=== PATIENT | female | born 1980 | race Caucasian/White ===

== ENCOUNTER 2019-09-08 16:21 | Outpatient (CLI) | payer OTHER | END 2019-09-08 23:59 | disposition home or self-care (01) | LOC: RAD 16:21 | PROVIDERS: ATTEND Family Medicine | DX: R22.42 Localized swelling, mass and lump, left lower limb (principal) | CPT/HCPCS: 73610; 73630 ==

== ENCOUNTER 2019-12-10 15:23 | Outpatient (CLI) | payer BC, OTHER ==
[2019-12-10 16:07] LABS: BASOPHILS % (AUTO) 0.3 % (0-1); EOSINOPHILS # (AUTO) 0.2 X10'3 (0-0.9); EOSINOPHILS % (AUTO) 1.9 % (0-6); HEMATOCRIT 39.8 % (35.0-45.0); HEMOGLOBIN 13.4 g/dl (12.0-16.0); LYMPHOCYTES # (AUTO) 2.6 X10'3 (1.1-4.8); LYMPHOCYTES % (AUTO) 31.8 % (21-51); MEAN CORPUSCULAR HEMOGLOBIN 31.7 PG (27.0-31.0); MEAN CORPUSCULAR HGB CONC 33.7 g/dL (33.0-36.5); MEAN CORPUSCULAR VOLUME 94.1 FL (78-98); MEAN PLATELET VOLUME 9.1 FL (7.4-10.4); MONOCYTES # (AUTO) 0.8 X10'3 (0-0.9); MONOCYTES % (AUTO) 9.2 % (2-12); NEUTROPHILS # (AUTO) 4.7 X10'3 (1.8-7.7); NEUTROPHILS % (AUTO) 56.8 % (42-75); PLATELET COUNT 232 X10'3 (140-440); RED BLOOD COUNT 4.23 X10'6 (4.20-5.60); RED CELL DISTRIBUTION WIDTH 13.4 % (11.5-14.5); WHITE BLOOD COUNT 8.3 X10'3 (4.5-11.0)
[2019-12-10 16:19] LABS: HEMOGLOBIN A1C 5.3 % (4.5-6.2)
[2019-12-10 16:36] LABS: ALANINE AMINOTRANSFERASE 29 U/L (12-78); ALBUMIN 4.2 G/DL (3.4-5.0); ALBUMIN/GLOBULIN RATIO 1.3 (1.1-1.5); ALKALINE PHOSPHATASE 46 IU/L (46-116); ANION GAP 8 (8-16); ASPARTATE AMINO TRANSFERASE 15 U/L (10-37); BILIRUBIN,TOTAL 0.4 MG/DL (0.1-1.0); BLOOD UREA NITROGEN 12 MG/DL (7-18); BUN/CREATININE RATIO 11.7 (6.6-38.0); CALCIUM 9.1 MG/DL (8.5-10.1); CHLORIDE 102 MMOL/L (99-107); CHOL/HDL RATIO 3.1 (0.00-4.99); CHOLESTEROL 143 MG/DL (0-200); CREATININE 1.03 MG/DL (0.40-0.90); GLUCOSE 88 MG/DL (70-104); HDL CHOLESTEROL 46 MG/DL (35-60); LDL CHOLESTEROL 77 MG/DL (50-100); POTASSIUM 3.7 MMOL/L (3.5-5.1); SODIUM 137 MMOL/L (135-145); TOTAL CARBON DIOXIDE 27.2 MMOL/L (24-32); TOTAL PROTEIN 7.4 G/DL (6.4-8.2); TRIGLYCERIDES 198 MG/DL (20-135); eGFR 59 ML/MIN
== END 2019-12-10 23:59 | disposition home or self-care (01) ==
LOC: LAB 15:23
PROVIDERS: ATTEND Nurse Practitioner Family
DX: Z13.29 Encounter for screening for other suspected endocrine disorder (principal); I10 Essential (primary) hypertension; E78.49 Other hyperlipidemia; Z13.0 Encounter for screening for diseases of the blood and blood-forming organs and certain disorders involving the immune mechanism
CPT/HCPCS: 36415; 80053; 80061; 83036; 84439; 84443; 85025

== ENCOUNTER 2019-12-24 14:30 | Outpatient (CLI) | payer BC, OTHER | END 2019-12-24 23:59 | disposition home or self-care (01) | LOC: RAD 14:30 | PROVIDERS: ATTEND Nurse Practitioner Family | DX: R94.4 Abnormal results of kidney function studies (principal); R79.89 Other specified abnormal findings of blood chemistry; Q61.5 Medullary cystic kidney | CPT/HCPCS: 76775 ==

== ENCOUNTER 2020-01-05 | Outpatient (CLI) | payer SELFPAY | END 2020-01-05 23:59 | disposition home or self-care (01) | DX: Z13.6 Encounter for screening for cardiovascular disorders (principal) ==

== ENCOUNTER 2020-07-22 10:43 | Outpatient (CLI) | payer OTHER ==
[2020-07-22 11:27] LABS: CLARITY,URINE CLEAR (Clear); COLOR,URINE STRAW (Yellow); GLUCOSE, URINE NEGATIVE (Neg); KETONES,URINE NEGATIVE (Neg); LEUKOCYTE ESTERASE ,URINE NEGATIVE (Neg); NITRITES, URINE NEGATIVE (Neg); OCCULT BLOOD,URINE NEGATIVE (Neg); PROTEIN,URINE NEGATIVE (Neg); UROBILINOGEN,URINE 0.2 E.U/dL (0.2-1.0)
[2020-07-22 11:30] LABS: UA COLLECTION TYPE CLN CATCH MIDSTREAM
[2020-07-22 11:55] LABS: ALANINE AMINOTRANSFERASE 37 U/L (12-78); ALBUMIN 3.8 G/DL (3.4-5.0); ALBUMIN/GLOBULIN RATIO 1.2 (1.1-1.5); ALKALINE PHOSPHATASE 50 IU/L (46-116); ANION GAP 11 (8-16); ASPARTATE AMINO TRANSFERASE 17 U/L (10-37); BILIRUBIN,TOTAL 0.4 MG/DL (0.1-1.0); BLOOD UREA NITROGEN 15 MG/DL (7-18); CALCIUM 8.6 MG/DL (8.5-10.1); CHLORIDE 102 MMOL/L (99-107); CHOL/HDL RATIO 3.3 (0.00-4.99); CHOLESTEROL 157 MG/DL (0-200); CREATININE 1.07 MG/DL (0.40-0.90); GLUCOSE 141 MG/DL (70-104); HDL CHOLESTEROL 47 MG/DL (35-60); LDL CHOLESTEROL 86 MG/DL (50-100); POTASSIUM 3.6 MMOL/L (3.5-5.1); SODIUM 141 MMOL/L (135-145); TOTAL CARBON DIOXIDE 28.1 MMOL/L (24-32); TOTAL PROTEIN 6.9 G/DL (6.4-8.2); TRIGLYCERIDES 220 MG/DL (20-135); eGFR 56 ML/MIN
[2020-07-22 11:57] LABS: BASOPHILS % (AUTO) 0.1 % (0-1); EOSINOPHILS # (AUTO) 0.1 X10'3 (0-0.9); EOSINOPHILS % (AUTO) 1.4 % (0-6); HEMATOCRIT 40.4 % (35.0-45.0); HEMOGLOBIN 13.5 g/dl (12.0-16.0); LYMPHOCYTES # (AUTO) 1.8 X10'3 (1.1-4.8); MEAN CORPUSCULAR HEMOGLOBIN 31.7 PG (27.0-31.0); MEAN CORPUSCULAR HGB CONC 33.5 g/dL (33.0-36.5); MEAN CORPUSCULAR VOLUME 94.5 FL (78-98); MONOCYTES # (AUTO) 0.5 X10'3 (0-0.9); MONOCYTES % (AUTO) 5.7 % (2-12); NEUTROPHILS # (AUTO) 6.1 X10'3 (1.8-7.7); NEUTROPHILS % (AUTO) 71.8 % (42-75); PLATELET COUNT 211 X10'3 (140-440); RED BLOOD COUNT 4.27 X10'6 (4.20-5.60); RED CELL DISTRIBUTION WIDTH 13.4 % (11.5-14.5); WHITE BLOOD COUNT 8.4 X10'3 (4.5-11.0)
== END 2020-07-22 23:59 | disposition home or self-care (01) ==
LOC: LAB 10:43
PROVIDERS: ATTEND Nurse Practitioner Family
DX: Z00.01 Encounter for general adult medical examination with abnormal findings (principal); Z12.31 Encounter for screening mammogram for malignant neoplasm of breast; I10 Essential (primary) hypertension; E78.5 Hyperlipidemia, unspecified; N39.9 Disorder of urinary system, unspecified; Z13.29 Encounter for screening for other suspected endocrine disorder; Z68.34 Body mass index [BMI] 34.0-34.9, adult
CPT/HCPCS: 36415; 80053; 80061; 81003; 84439; 84443; 85025

== ENCOUNTER 2020-11-01 15:58 | Outpatient (CLI) | payer BC, OTHER ==
[2020-11-01 16:55] LABS: BASOPHILS % (AUTO) 0.2 % (0-1); EOSINOPHILS # (AUTO) 0.1 X10'3 (0-0.9); EOSINOPHILS % (AUTO) 1.6 % (0-6); HEMATOCRIT 39.2 % (35.0-45.0); HEMOGLOBIN 13.4 g/dl (12.0-16.0); LYMPHOCYTES # (AUTO) 2.5 X10'3 (1.1-4.8); MEAN CORPUSCULAR HEMOGLOBIN 31.9 PG (27.0-31.0); MEAN CORPUSCULAR HGB CONC 34.1 g/dL (33.0-36.5); MEAN CORPUSCULAR VOLUME 93.8 FL (78-98); MEAN PLATELET VOLUME 9.2 FL (7.4-10.4); MONOCYTES # (AUTO) 0.9 X10'3 (0-0.9); NEUTROPHILS # (AUTO) 5.2 X10'3 (1.8-7.7); NEUTROPHILS % (AUTO) 59.2 % (42-75); PLATELET COUNT 217 X10'3 (140-440); RED BLOOD COUNT 4.18 X10'6 (4.20-5.60); RED CELL DISTRIBUTION WIDTH 13.4 % (11.5-14.5); WHITE BLOOD COUNT 8.8 X10'3 (4.5-11.0)
[2020-11-01 17:11] LABS: ALANINE AMINOTRANSFERASE 43 U/L (12-78); ALBUMIN 3.9 G/DL (3.4-5.0); ALBUMIN/GLOBULIN RATIO 1.3 (1.1-1.5); ALKALINE PHOSPHATASE 54 IU/L (46-116); ANION GAP 9 (8-16); ASPARTATE AMINO TRANSFERASE 21 U/L (10-37); BILIRUBIN,TOTAL 0.4 MG/DL (0.1-1.0); BLOOD UREA NITROGEN 16 MG/DL (7-18); BUN/CREATININE RATIO 17.4 (6.6-38.0); CALCIUM 8.8 MG/DL (8.5-10.1); CHLORIDE 103 MMOL/L (99-107); CREATININE 0.92 MG/DL (0.40-0.90); GLUCOSE 96 MG/DL (70-104); MAGNESIUM 1.9 MG/DL (1.5-2.4); PHOSPHORUS 3.9 MG/DL (2.3-4.5); POTASSIUM 3.4 MMOL/L (3.5-5.1); SODIUM 142 MMOL/L (135-145); TOTAL CARBON DIOXIDE 30.1 MMOL/L (24-32); eGFR 67 ML/MIN
[2020-11-01 17:13] LABS: TOTAL PROTEIN,URINE RANDOM < 6.0 MG/DL
[2020-11-01 17:14] LABS: CLARITY,URINE CLEAR (Clear); COLOR,URINE STRAW (Yellow); GLUCOSE, URINE NEGATIVE (Neg); KETONES,URINE NEGATIVE (Neg); LEUKOCYTE ESTERASE ,URINE NEGATIVE (Neg); NITRITES, URINE NEGATIVE (Neg); OCCULT BLOOD,URINE NEGATIVE (Neg); PH,URINE 6.5 (4.8-8.0); PROTEIN,URINE NEGATIVE (Neg); UROBILINOGEN,URINE 0.2 E.U/dL (0.2-1.0)
[2020-11-01 17:21] LABS: UA COLLECTION TYPE CLN CATCH MIDSTREAM
== END 2020-11-01 23:59 | disposition home or self-care (01) ==
LOC: LAB 15:58
PROVIDERS: ATTEND Internal Medicine Critical Care Medicine
DX: N39.0 Urinary tract infection, site not specified (principal); D63.1 Anemia in chronic kidney disease; N18.9 Chronic kidney disease, unspecified; E83.30 Disorder of phosphorus metabolism, unspecified; R80.9 Proteinuria, unspecified; E83.42 Hypomagnesemia; E83.52 Hypercalcemia; R82.90 Unspecified abnormal findings in urine; R77.0 Abnormality of albumin
CPT/HCPCS: 36415; 80053; 81003; 82043; 82306; 82570; 83735; 83970; 84100; 84156; 85025

== ENCOUNTER 2022-04-17 15:33 | Outpatient (CLI) | payer BC, OTHER ==
[2022-04-17 16:41] LABS: BASOPHILS % (AUTO) 0.4 % (0-1); EOSINOPHILS # (AUTO) 0.5 X10'3 (0-0.9); EOSINOPHILS % (AUTO) 5.9 % (0-6); HEMATOCRIT 39.1 % (35.0-45.0); HEMOGLOBIN 13.3 g/dl (12.0-16.0); LYMPHOCYTES # (AUTO) 2.8 X10'3 (1.1-4.8); LYMPHOCYTES % (AUTO) 31.1 % (21-51); MEAN CORPUSCULAR HGB CONC 34.1 g/dL (33.0-36.5); MEAN CORPUSCULAR VOLUME 93.8 FL (78-98); MEAN PLATELET VOLUME 8.7 FL (7.4-10.4); MONOCYTES # (AUTO) 0.7 X10'3 (0-0.9); MONOCYTES % (AUTO) 7.8 % (2-12); NEUTROPHILS % (AUTO) 54.8 % (42-75); PLATELET COUNT 212 X10'3 (140-440); RED BLOOD COUNT 4.17 X10'6 (4.20-5.60); RED CELL DISTRIBUTION WIDTH 13.5 % (11.5-14.5); WHITE BLOOD COUNT 9.1 X10'3 (4.5-11.0)
[2022-04-17 17:09] LABS: ALANINE AMINOTRANSFERASE 53 U/L (12-78); ALBUMIN/GLOBULIN RATIO 1.3 (1.1-1.5); ALKALINE PHOSPHATASE 61 IU/L (46-116); ANION GAP 8 (8-16); ASPARTATE AMINO TRANSFERASE 36 U/L (10-37); BILIRUBIN,TOTAL 0.3 MG/DL (0.1-1.0); BLOOD UREA NITROGEN 12 MG/DL (7-18); BUN/CREATININE RATIO 11.2 (6.6-38.0); CALCIUM 8.2 MG/DL (8.5-10.1); CHLORIDE 103 MMOL/L (99-107); CHOL/HDL RATIO 4.3 (0.00-4.99); CHOLESTEROL 193 MG/DL (0-200); CREATININE 1.07 MG/DL (0.40-0.90); GLUCOSE 97 MG/DL (70-104); HDL CHOLESTEROL 45 MG/DL (35-60); LDL CHOLESTEROL 109 MG/DL (50-100); PHOSPHORUS 3.6 MG/DL (2.3-4.5); POTASSIUM 3.8 MMOL/L (3.5-5.1); SODIUM 137 MMOL/L (135-145); TOTAL CARBON DIOXIDE 26.2 MMOL/L (24-32); TOTAL PROTEIN 7.1 G/DL (6.4-8.2); TRIGLYCERIDES 309 MG/DL (20-135); eGFR 56 ML/MIN
== END 2022-04-17 23:59 | disposition home or self-care (01) ==
LOC: LAB 15:33
PROVIDERS: ATTEND Family Medicine
DX: Z13.29 Encounter for screening for other suspected endocrine disorder (principal); R53.83 Other fatigue; Q24.8 Other specified congenital malformations of heart; K21.9 Gastro-esophageal reflux disease without esophagitis; I10 Essential (primary) hypertension; Q61.5 Medullary cystic kidney; M25.561 Pain in right knee; Z91.09 Other allergy status, other than to drugs and biological substances
CPT/HCPCS: 36415; 80053; 80061; 82043; 82570; 82607; 82746; 84100; 84443; 85025; 85651; 86140

== ENCOUNTER 2022-07-06 10:56 | Outpatient (CLI) | payer OTHER ==
[2022-07-06 12:33] LABS: CLARITY,URINE CLEAR (Clear); COLOR,URINE YELLOW (Yellow); GLUCOSE, URINE NEGATIVE (Neg); KETONES,URINE NEGATIVE (Neg); LEUKOCYTE ESTERASE ,URINE NEGATIVE (Neg); NITRITES, URINE NEGATIVE (Neg); OCCULT BLOOD,URINE NEGATIVE (Neg); PROTEIN,URINE NEGATIVE (Neg); UROBILINOGEN,URINE 0.2 E.U/dL (0.2-1.0)
[2022-07-06 12:35] LABS: UA COLLECTION TYPE CLN CATCH MIDSTREAM
[2022-07-06 12:53] LABS: BASOPHILS % (AUTO) 0.3 % (0-1); EOSINOPHILS # (AUTO) 0.1 X10'3 (0-0.9); EOSINOPHILS % (AUTO) 1.5 % (0-6); HEMATOCRIT 42.1 % (35.0-45.0); HEMOGLOBIN 14.4 g/dl (12.0-16.0); LYMPHOCYTES # (AUTO) 2.8 X10'3 (1.1-4.8); LYMPHOCYTES % (AUTO) 30.7 % (21-51); MEAN CORPUSCULAR HEMOGLOBIN 31.7 PG (27.0-31.0); MEAN CORPUSCULAR HGB CONC 34.1 g/dL (33.0-36.5); MEAN CORPUSCULAR VOLUME 93.1 FL (78-98); MEAN PLATELET VOLUME 8.9 FL (7.4-10.4); MONOCYTES # (AUTO) 0.7 X10'3 (0-0.9); MONOCYTES % (AUTO) 8.2 % (2-12); NEUTROPHILS # (AUTO) 5.4 X10'3 (1.8-7.7); NEUTROPHILS % (AUTO) 59.3 % (42-75); PLATELET COUNT 254 X10'3 (140-440); RED BLOOD COUNT 4.52 X10'6 (4.20-5.60); RED CELL DISTRIBUTION WIDTH 13.1 % (11.5-14.5); WHITE BLOOD COUNT 9.2 X10'3 (4.5-11.0)
[2022-07-06 12:58] LABS: TOTAL PROTEIN,URINE RANDOM < 6.0 MG/DL
[2022-07-06 13:21] LABS: % IRON SATURATION 27 % (11-46); IRON 98 UG/DL (49-151); TOTAL IRON BINDING CAPACITY 365 UG/DL (259-388)
[2022-07-06 13:51] LABS: ALBUMIN 4.3 G/DL (3.4-5.0); ANION GAP 9 (8-16); BLOOD UREA NITROGEN 13 MG/DL (7-18); BUN/CREATININE RATIO 12.9 (10.0-20.0); CALCIUM 9.2 MG/DL (8.5-10.1); CHLORIDE 100 MMOL/L (99-107); CREATININE 1.01 MG/DL (0.40-0.90); FERRITIN 135 NG/ML (8-252); GLUCOSE 97 MG/DL (70-104); MAGNESIUM 2.2 MG/DL (1.5-2.4); PHOSPHORUS 4.4 MG/DL (2.3-4.5); SODIUM 137 MMOL/L (135-145); TOTAL CARBON DIOXIDE 28.3 MMOL/L (24-32); eGFR 60 ML/MIN
== END 2022-07-06 23:59 | disposition home or self-care (01) ==
LOC: LAB 10:56
PROVIDERS: ATTEND Internal Medicine Critical Care Medicine
DX: N18.1 Chronic kidney disease, stage 1 (principal); D63.1 Anemia in chronic kidney disease; R94.4 Abnormal results of kidney function studies; E83.40 Disorders of magnesium metabolism, unspecified; E83.30 Disorder of phosphorus metabolism, unspecified; N39.0 Urinary tract infection, site not specified; D50.8 Other iron deficiency anemias; E83.52 Hypercalcemia; R80.9 Proteinuria, unspecified
CPT/HCPCS: 36415; 80069; 81003; 82306; 82570; 82728; 83540; 83550; 83735; 83970; 84156; 85025; 87088

== ENCOUNTER 2022-11-13 09:11 | Outpatient (CLI) | payer OTHER ==
[2022-11-13 10:13] LABS: CHOL/HDL RATIO 4.4 (0.00-4.99); CHOLESTEROL 181 MG/DL (0-200); GLUCOSE 119 MG/DL (70-104); HDL CHOLESTEROL 41 MG/DL (35-60); HEMOGLOBIN A1C 5.7 % (4.5-6.2); LDL CHOLESTEROL 101 MG/DL (50-100); TRIGLYCERIDES 247 MG/DL (20-135)
== END 2022-11-13 23:59 | disposition home or self-care (01) ==
LOC: LAB 09:11
PROVIDERS: ATTEND Family Medicine
DX: Z13.1 Encounter for screening for diabetes mellitus (principal); E78.5 Hyperlipidemia, unspecified
CPT/HCPCS: 36415; 80061; 82947; 82950; 83036

== ENCOUNTER 2023-02-08 12:53 | Outpatient (CLI) | payer OTHER | END 2023-02-08 23:59 | disposition home or self-care (01) | LOC: RAD 12:53 | PROVIDERS: ATTEND Family Medicine | DX: M25.561 Pain in right knee (principal); Z68.36 Body mass index [BMI] 36.0-36.9, adult | CPT/HCPCS: 73565 ==

== ENCOUNTER 2023-02-15 15:59 | Outpatient (CLI) | payer OTHER | END 2023-02-15 23:59 | disposition home or self-care (01) | LOC: RAD 15:59 | PROVIDERS: ATTEND Family Medicine | DX: N21.0 Calculus in bladder (principal); N32.89 Other specified disorders of bladder; N23 Unspecified renal colic | CPT/HCPCS: 76770 ==

== ENCOUNTER 2023-02-26 10:33 | Emergency (ER) | payer OTHER ==
[~2023-02-26] VITALS: Ht 172.7 cm; Wt 100.0 kg
[2023-02-26 11:17] LABS: BILIRUBIN,URINE NEGATIVE (Neg); CLARITY,URINE CLEAR (Clear); COLOR,URINE STRAW (Yellow); GLUCOSE, URINE NEGATIVE (Neg); KETONES,URINE NEGATIVE (Neg); LEUKOCYTE ESTERASE ,URINE NEGATIVE (Neg); NITRITES, URINE NEGATIVE (Neg); OCCULT BLOOD,URINE NEGATIVE (Neg); PROTEIN,URINE NEGATIVE (Neg); UROBILINOGEN,URINE 0.2 E.U/dL (0.2-1.0)
[2023-02-26 11:23] LABS: UA COLLECTION TYPE CLN CATCH MIDSTREAM
[2023-02-26 11:35] LABS: BASOPHILS % (AUTO) 0.3 % (0-1); EOSINOPHILS # (AUTO) 0.1 X10'3 (0-0.9); EOSINOPHILS % (AUTO) 1.4 % (0-6); HEMATOCRIT 40.2 % (35.0-45.0); HEMOGLOBIN 13.6 g/dl (12.0-16.0); LYMPHOCYTES # (AUTO) 2.7 X10'3 (1.1-4.8); LYMPHOCYTES % (AUTO) 28.3 % (21-51); MEAN CORPUSCULAR VOLUME 94.2 FL (78-98); MEAN PLATELET VOLUME 8.8 FL (7.4-10.4); MONOCYTES # (AUTO) 0.7 X10'3 (0-0.9); MONOCYTES % (AUTO) 6.8 % (2-12); NEUTROPHILS # (AUTO) 6.1 X10'3 (1.8-7.7); NEUTROPHILS % (AUTO) 63.2 % (42-75); PLATELET COUNT 265 X10'3 (140-440); RED BLOOD COUNT 4.27 X10'6 (4.20-5.60); RED CELL DISTRIBUTION WIDTH 12.9 % (11.5-14.5); WHITE BLOOD COUNT 9.7 X10'3 (4.5-11.0)
[2023-02-26 11:50] LABS: ALANINE AMINOTRANSFERASE 28 U/L (12-78); ALBUMIN 4.2 G/DL (3.4-5.0); ALBUMIN/GLOBULIN RATIO 1.3 (1.1-1.5); ALKALINE PHOSPHATASE 52 IU/L (46-116); AMYLASE 22 U/L (25-115); ANION GAP 6 (8-16); ASPARTATE AMINO TRANSFERASE 18 U/L (10-37); BILIRUBIN,TOTAL 0.5 MG/DL (0.1-1.0); BLOOD UREA NITROGEN 17 MG/DL (7-18); BUN/CREATININE RATIO 16.3 (10.0-20.0); CALCIUM 8.9 MG/DL (8.5-10.1); CHLORIDE 100 MMOL/L (99-107); CREATININE 1.04 MG/DL (0.40-0.90); GLUCOSE 127 MG/DL (70-104); LIPASE 50 U/L (16-77); POTASSIUM 3.6 MMOL/L (3.5-5.1); SODIUM 134 MMOL/L (135-145); TOTAL CARBON DIOXIDE 27.9 MMOL/L (24-32); TOTAL PROTEIN 7.4 G/DL (6.4-8.2); eCRCL 70 ML/MIN; eGFR 58 ML/MIN
[2023-02-26 16:18] VITALS: TEMP 97.6
[2023-02-26] MEDS ORDERED: morphine 4 MG/ML inj SYRINge IV ONE ×2 (16:30→18:15)
[2023-02-26] MEDS ORDERED: ondansetron/PF 4mg/2ml inj IV ONE (16:30)
[2023-02-26] MEDS ORDERED: normal saline 1000ML IV soln IVB ONE (16:30)
[2023-02-26 16:55] LABS: URINE HCG NEGATIVE (NEG)
--- NOTE | 2023-02-26 18:10 | NUR ---
PT REPORTS NO RELEIF FROM [place]. NOTIFIED DR. COTTO. ORDERS RECIEVED. WILL IMPLEMENT ORDERS.
[2023-02-26] MEDS ORDERED: mag hydrox/Alum hydrox/simeth 30ml oral suspension PO ONE (18:15)
[2023-02-26] MEDS ORDERED: LIDOcaine Viscous 15ml cup MM PRN (18:15)
[2023-02-26] MEDS ORDERED: ONDA4TAB12 PO (19:08)
[2023-02-26] MEDS ORDERED: HYDR-3965 PO (19:08)
[2023-02-26 19:50] VITALS: BP 127/82; PULSE 82; RESP 19; O2SAT 98
== END 2023-02-26 21:02 | disposition home or self-care (01) ==
LOC: ER 10:33
DX: N20.0 Calculus of kidney (principal); R11.0 Nausea; E78.00 Pure hypercholesterolemia, unspecified; I10 Essential (primary) hypertension; Z88.8 Allergy status to other drugs, medicaments and biological substances
CPT/HCPCS: 36415; 74176; 80053; 81003; 81025; 82150; 83690; 85025; 96361; 96374; 96375; 99285; J2270; J2405; J7030

== ENCOUNTER 2023-03-27 11:03 | Outpatient (CLI) | payer OTHER ==
[~2023-03-27 11:03] MED LIST: HYDR-3965 PO; ONDA4TAB12 PO
[2023-03-27 11:38] LABS: BASOPHILS % (AUTO) 0.3 % (0-1); EOSINOPHILS # (AUTO) 0.2 X10'3 (0-0.9); EOSINOPHILS % (AUTO) 2.5 % (0-6); HEMATOCRIT 38.6 % (35.0-45.0); HEMOGLOBIN 13.2 g/dl (12.0-16.0); LYMPHOCYTES # (AUTO) 2.5 X10'3 (1.1-4.8); LYMPHOCYTES % (AUTO) 34.2 % (21-51); MEAN CORPUSCULAR HEMOGLOBIN 31.8 PG (27.0-31.0); MEAN CORPUSCULAR HGB CONC 34.1 g/dL (33.0-36.5); MEAN CORPUSCULAR VOLUME 93.2 FL (78-98); MEAN PLATELET VOLUME 8.9 FL (7.4-10.4); MONOCYTES # (AUTO) 0.6 X10'3 (0-0.9); MONOCYTES % (AUTO) 8.5 % (2-12); NEUTROPHILS % (AUTO) 54.5 % (42-75); PLATELET COUNT 232 X10'3 (140-440); RED BLOOD COUNT 4.14 X10'6 (4.20-5.60); RED CELL DISTRIBUTION WIDTH 12.9 % (11.5-14.5); WHITE BLOOD COUNT 7.4 X10'3 (4.5-11.0)
[2023-03-27 11:46] LABS: ANION GAP 8 (8-16); BLOOD UREA NITROGEN 11 MG/DL (7-18); BUN/CREATININE RATIO 11.2 (10.0-20.0); CALCIUM 8.7 MG/DL (8.5-10.1); CHLORIDE 105 MMOL/L (99-107); CREATININE 0.98 MG/DL (0.40-0.90); GLUCOSE 93 MG/DL (70-104); POTASSIUM 3.7 MMOL/L (3.5-5.1); SODIUM 138 MMOL/L (135-145); TOTAL CARBON DIOXIDE 25.4 MMOL/L (24-32); eGFR 62 ML/MIN
== END 2023-03-27 23:59 | disposition home or self-care (01) ==
LOC: LAB 11:03
PROVIDERS: ATTEND Urology
DX: Z01.812 Encounter for preprocedural laboratory examination (principal); N20.0 Calculus of kidney
CPT/HCPCS: 36415; 80048; 85025

== ENCOUNTER 2023-06-18 15:49 | Outpatient (CLI) | payer OTHER ==
[2023-06-18 16:36] LABS: BASOPHILS % (AUTO) 0.2 % (0-1); EOSINOPHILS # (AUTO) 0.2 X10'3 (0-0.9); EOSINOPHILS % (AUTO) 1.6 % (0-6); HEMATOCRIT 40.6 % (35.0-45.0); HEMOGLOBIN 13.7 g/dl (12.0-16.0); LYMPHOCYTES # (AUTO) 3.1 X10'3 (1.1-4.8); LYMPHOCYTES % (AUTO) 30.4 % (21-51); MEAN CORPUSCULAR HEMOGLOBIN 31.4 PG (27.0-31.0); MEAN CORPUSCULAR HGB CONC 33.7 g/dL (33.0-36.5); MEAN CORPUSCULAR VOLUME 93.1 FL (78-98); MEAN PLATELET VOLUME 8.9 FL (7.4-10.4); MONOCYTES % (AUTO) 9.4 % (2-12); NEUTROPHILS # (AUTO) 5.9 X10'3 (1.8-7.7); NEUTROPHILS % (AUTO) 58.4 % (42-75); PLATELET COUNT 251 X10'3 (140-440); RED BLOOD COUNT 4.36 X10'6 (4.20-5.60); RED CELL DISTRIBUTION WIDTH 13.3 % (11.5-14.5); WHITE BLOOD COUNT 10.1 X10'3 (4.5-11.0)
[2023-06-18 16:50] LABS: HEMOGLOBIN A1C 5.4 % (4.5-6.2)
[2023-06-18 17:47] LABS: ALBUMIN 4.1 G/DL (3.4-5.0); ALBUMIN/GLOBULIN RATIO 1.3 (1.1-1.5); ANION GAP 12 (8-16); ASPARTATE AMINO TRANSFERASE 17 U/L (10-37); BILIRUBIN,TOTAL 0.3 MG/DL (0.1-1.0); BLOOD UREA NITROGEN 19 MG/DL (7-18); BUN/CREATININE RATIO 19.2 (10.0-20.0); CALCIUM 8.5 MG/DL (8.5-10.1); CHLORIDE 105 MMOL/L (99-107); CHOL/HDL RATIO 4.1 (0.00-4.99); CHOLESTEROL 194 MG/DL (0-200); CREATININE 0.99 MG/DL (0.40-0.90); FREE T4 (FREE THYROXINE) 0.72 NG/DL (0.73-1.40); GLUCOSE 96 MG/DL (70-104); HDL CHOLESTEROL 47 MG/DL (35-60); POTASSIUM 3.9 MMOL/L (3.5-5.1); SODIUM 141 MMOL/L (135-145); THYROID STIMULATING HORMONE 1.39 ulU/ml (0.34-4.50); TOTAL CARBON DIOXIDE 23.8 MMOL/L (24-32); TOTAL PROTEIN 7.3 G/DL (6.4-8.2); TRIGLYCERIDES 184 MG/DL (20-135); eGFR 61 ML/MIN
[2023-06-18 17:49] LABS: ALANINE AMINOTRANSFERASE 29 U/L (12-78); ALKALINE PHOSPHATASE 49 IU/L (46-116); LDL CHOLESTEROL 107 MG/DL (50-100)
[2023-06-19 08:23] LABS: BILIRUBIN,URINE NEGATIVE (Neg); CLARITY,URINE CLEAR (Clear); COLOR,URINE YELLOW (Yellow); GLUCOSE, URINE NEGATIVE (Neg); KETONES,URINE NEGATIVE (Neg); LEUKOCYTE ESTERASE ,URINE NEGATIVE (Neg); NITRITES, URINE NEGATIVE (Neg); OCCULT BLOOD,URINE NEGATIVE (Neg); PH,URINE 5.5 (4.8-8.0); PROTEIN,URINE NEGATIVE (Neg); UROBILINOGEN,URINE 0.2 E.U/dL (0.2-1.0)
[2023-06-19 08:29] LABS: UA COLLECTION TYPE CLN CATCH MIDSTREAM
== END 2023-06-18 23:59 | disposition home or self-care (01) ==
LOC: LAB 15:49
PROVIDERS: ATTEND Family Medicine
DX: Z00.00 Encounter for general adult medical examination without abnormal findings (principal)
CPT/HCPCS: 36415; 80053; 80061; 81003; 83036; 84439; 84443; 85025

== ENCOUNTER 2023-10-25 16:01 | Outpatient (CLI) | payer OTHER ==
[~2023-10-25 16:01] MED LIST changes: +ONDA-243 PO; -ONDA4TAB12 PO
[2023-11-29] MEDS ORDERED: LOSA1TAB41 PO (08:58)
[2023-11-29] MEDS ORDERED: ROSU10TA72 PO (08:58)
[2023-11-29] MEDS ORDERED: FENO50CA4 PO (08:58)
[2023-11-29] MEDS ORDERED: MONT-40 PO (08:58)
[2023-11-29] MEDS ORDERED: MULT-1085 PO (08:58)
[2023-11-29] MEDS ORDERED: DESV25TA2 PO (08:58)
[2023-11-29] MEDS ORDERED: TUMERIC (08:58)
[2023-11-29] MEDS ORDERED: ALBUTEROL INH (09:00)
[2023-11-29] MEDS ORDERED: [UNRECOGNIZED DRUG - OTHER] (09:01)
== END 2023-10-25 23:59 | disposition home or self-care (01) ==
LOC: LAB 16:01
PROVIDERS: ATTEND Student in an Organized Health Care Education/Training Program
DX: R21 Rash and other nonspecific skin eruption (principal); L30.9 Dermatitis, unspecified
CPT/HCPCS: 36415

== ENCOUNTER 2023-12-04 15:22 | Outpatient (CLI) | payer OTHER ==
[~2023-12-04 15:22] MED LIST changes: +ALBUTEROL INH; +DESV25TA2 PO; +FENO50CA4 PO; -HYDR-3965 PO; +LOSA1TAB41 PO; +MONT-40 PO; +MULT-1085 PO; -ONDA-243 PO; +ROSU10TA72 PO; +TUMERIC; +[UNRECOGNIZED DRUG - OTHER]
[2023-12-04 16:17] LABS: BASOPHILS # (AUTO) 0.1 X10'3 (0-0.2); BASOPHILS % (AUTO) 0.7 % (0-1); EOSINOPHILS # (AUTO) 1.5 X10'3 (0-0.9); HEMATOCRIT 40.8 % (35.0-45.0); HEMOGLOBIN 13.3 g/dl (12.0-16.0); LYMPHOCYTES # (AUTO) 3.6 X10'3 (1.1-4.8); LYMPHOCYTES % (AUTO) 27.3 % (21-51); MEAN CORPUSCULAR HEMOGLOBIN 30.8 PG (27.0-31.0); MEAN CORPUSCULAR HGB CONC 32.6 g/dL (33.0-36.5); MEAN CORPUSCULAR VOLUME 94.5 FL (78-98); MEAN PLATELET VOLUME 8.8 FL (7.4-10.4); MONOCYTES # (AUTO) 1.1 X10'3 (0-0.9); PLATELET COUNT 247 X10'3 (140-440); RED BLOOD COUNT 4.32 X10'6 (4.20-5.60); RED CELL DISTRIBUTION WIDTH 13.4 % (11.5-14.5); WHITE BLOOD COUNT 13.2 X10'3 (4.5-11.0)
[2023-12-04 16:20] LABS: BILIRUBIN,URINE NEGATIVE (Neg); CLARITY,URINE CLEAR (Clear); COLOR,URINE YELLOW (Yellow); GLUCOSE, URINE NEGATIVE (Neg); KETONES,URINE NEGATIVE (Neg); LEUKOCYTE ESTERASE ,URINE NEGATIVE (Neg); NITRITES, URINE NEGATIVE (Neg); OCCULT BLOOD,URINE NEGATIVE (Neg); PH,URINE 6.5 (4.8-8.0); PROTEIN,URINE NEGATIVE (Neg); UROBILINOGEN,URINE 0.2 E.U/dL (0.2-1.0)
[2023-12-04 16:37] LABS: UA COLLECTION TYPE CLN CATCH MIDSTREAM
[2023-12-04 17:00] LABS: IRON 73 UG/DL (49-151)
[2023-12-04 17:12] LABS: ALBUMIN 3.9 G/DL (3.4-5.0); ANION GAP 8 (8-16); BLOOD UREA NITROGEN 19 MG/DL (7-18); BUN/CREATININE RATIO 18.4 (10.0-20.0); CALCIUM 9.7 MG/DL (8.5-10.1); CHLORIDE 102 MMOL/L (99-107); CREATININE 1.03 MG/DL (0.40-0.90); FERRITIN 176 NG/ML (8-252); GLUCOSE 102 MG/DL (70-104); MAGNESIUM 1.7 MG/DL (1.5-2.4); PHOSPHORUS 4.2 MG/DL (2.3-4.5); POTASSIUM 4.1 MMOL/L (3.5-5.1); SODIUM 138 MMOL/L (135-145); TOTAL CARBON DIOXIDE 27.7 MMOL/L (24-32); eGFR 58 ML/MIN
[2023-12-04 17:25] LABS: TOTAL PROTEIN,URINE RANDOM 6.5 MG/DL; UA PROTEIN/CREATININE RATIO 0.13 mg/mg Cr (0-0.16)
[2023-12-04 20:18] LABS: HEMOGLOBIN A1C 5.6 % (4.5-6.2)
[2023-12-06 11:13] LABS: VITAMIN D, 25-HYDROXY 27.2 ng/mL (30.0-100.0)
== END 2023-12-04 23:59 | disposition home or self-care (01) ==
LOC: LAB 15:22
PROVIDERS: ATTEND Internal Medicine Critical Care Medicine
DX: E11.22 Type 2 diabetes mellitus with diabetic chronic kidney disease (principal); N18.2 Chronic kidney disease, stage 2 (mild); D63.1 Anemia in chronic kidney disease; R94.4 Abnormal results of kidney function studies; N39.0 Urinary tract infection, site not specified; D50.8 Other iron deficiency anemias; R80.9 Proteinuria, unspecified; E83.52 Hypercalcemia; E11.29 Type 2 diabetes mellitus with other diabetic kidney complication; E83.40 Disorders of magnesium metabolism, unspecified; E83.30 Disorder of phosphorus metabolism, unspecified
CPT/HCPCS: 36415; 80069; 81003; 82306; 82570; 82728; 83036; 83540; 83735; 83970; 84156; 85025

== ENCOUNTER 2023-12-09 14:07 | Day surgery (SDC) | payer OTHER ==
[~2023-12-09] VITALS: Ht 172.7 cm; Wt 109.1 kg
[2023-12-09 14:25] VITALS: BP 126/79; PULSE 92; RESP 20
[2023-12-09] MEDS ORDERED: fentaNYL/PF 50MCG/1 ML 2ML syringe ONE (14:31)
[2023-12-09] MEDS ORDERED: MIDAZolam 1 MG/ML 5ML VIAL ONE (14:31)
[2023-12-09] MEDS ORDERED: LIDOcaine 2% Viscous 15ml cup ONE (14:32)
[2023-12-09 16:14] VITALS: BP 115/78; PULSE 78; RESP 14; O2SAT 98
[2023-12-09 16:24] VITALS: BP 129/84; PULSE 78; RESP 16; O2SAT 98
[2023-12-09 16:34] VITALS: BP 127/81; PULSE 81; RESP 16; O2SAT 98
[2023-12-09 16:44] VITALS: BP 132/89; PULSE 82; RESP 16; O2SAT 98
== END 2023-12-09 16:55 | disposition home or self-care (01) ==
LOC: GI LAB 14:07
PROVIDERS: ATTEND Internal Medicine Gastroenterology
DX: K30 Functional dyspepsia (principal); K21.00 Gastro-esophageal reflux disease with esophagitis, without bleeding; K29.50 Unspecified chronic gastritis without bleeding; K29.80 Duodenitis without bleeding
CPT/HCPCS: 43239; 99152; J2250; J3010; J7030; Z7512; A4620

== ENCOUNTER 2023-12-18 08:16 | Outpatient (CLI) | payer OTHER ==
[2023-12-19 11:13] LABS: ANTINUCLEAR ANTIBODIES Negative (Negative); COMPLEMENT C3, SERUM 180 mg/dL (82-167); COMPLEMENT C4, SERUM 33 mg/dL (12-38)
== END 2023-12-18 23:59 | disposition home or self-care (01) ==
LOC: RAD 08:16
PROVIDERS: ATTEND Internal Medicine Critical Care Medicine
DX: N18.2 Chronic kidney disease, stage 2 (mild) (principal); R76.0 Raised antibody titer; M32.19 Other organ or system involvement in systemic lupus erythematosus; B18.1 Chronic viral hepatitis B without delta-agent; B19.20 Unspecified viral hepatitis C without hepatic coma; R77.9 Abnormality of plasma protein, unspecified; R82.90 Unspecified abnormal findings in urine; R76.8 Other specified abnormal immunological findings in serum; M05.9 Rheumatoid arthritis with rheumatoid factor, unspecified
CPT/HCPCS: 36415; 85651; 86038; 86140; 86160; 86431; 86592

== ENCOUNTER 2023-12-23 13:24 | Outpatient (CLI) | payer OTHER ==
[2023-12-23 14:00] LABS: BASOPHILS % (AUTO) 0.3 % (0-1); EOSINOPHILS % (AUTO) 0.2 % (0-6); HEMATOCRIT 43.1 % (35.0-45.0); HEMOGLOBIN 14.3 g/dl (12.0-16.0); LYMPHOCYTES # (AUTO) 1.6 X10'3 (1.1-4.8); LYMPHOCYTES % (AUTO) 11.6 % (21-51); MEAN CORPUSCULAR HEMOGLOBIN 31.5 PG (27.0-31.0); MEAN CORPUSCULAR HGB CONC 33.3 g/dL (33.0-36.5); MEAN CORPUSCULAR VOLUME 94.8 FL (78-98); MONOCYTES # (AUTO) 0.5 X10'3 (0-0.9); MONOCYTES % (AUTO) 3.8 % (2-12); NEUTROPHILS # (AUTO) 11.8 X10'3 (1.8-7.7); NEUTROPHILS % (AUTO) 84.1 % (42-75); PLATELET COUNT 286 X10'3 (140-440); RED BLOOD COUNT 4.54 X10'6 (4.20-5.60); RED CELL DISTRIBUTION WIDTH 13.5 % (11.5-14.5)
[2023-12-23 14:21] LABS: ALANINE AMINOTRANSFERASE 57 U/L (12-78); ALBUMIN 4.1 G/DL (3.4-5.0); ALBUMIN/GLOBULIN RATIO 1.2 (1.1-1.5); ALKALINE PHOSPHATASE 52 IU/L (46-116); ANION GAP 12 (8-16); ASPARTATE AMINO TRANSFERASE 27 U/L (10-37); BILIRUBIN,TOTAL 0.3 MG/DL (0.1-1.0); BLOOD UREA NITROGEN 17 MG/DL (7-18); BUN/CREATININE RATIO 14.9 (10.0-20.0); CALCIUM 9.2 MG/DL (8.5-10.1); CHLORIDE 102 MMOL/L (99-107); CREATININE 1.14 MG/DL (0.40-0.90); FREE T4 (FREE THYROXINE) 0.73 NG/DL (0.73-1.40); GLUCOSE 179 MG/DL (70-104); POTASSIUM 4.1 MMOL/L (3.5-5.1); SODIUM 137 MMOL/L (135-145); THYROID STIMULATING HORMONE 0.26 ulU/ml (0.34-4.50); TOTAL CARBON DIOXIDE 22.9 MMOL/L (24-32); TOTAL PROTEIN 7.5 G/DL (6.4-8.2); eGFR 52 ML/MIN
== END 2023-12-23 23:59 | disposition home or self-care (01) ==
LOC: LAB 13:24
PROVIDERS: ATTEND Student in an Organized Health Care Education/Training Program
DX: D72.10 Eosinophilia, unspecified (principal); E21.5 Disorder of parathyroid gland, unspecified
CPT/HCPCS: 36415; 71046; 80053; 84439; 84443; 85025

== ENCOUNTER 2023-12-27 08:23 | Outpatient (CLI) | payer OTHER ==
[2023-12-27 09:40] LABS: BASOPHILS # (AUTO) 0.1 X10'3 (0-0.2); BASOPHILS % (AUTO) 0.5 % (0-1); EOSINOPHILS # (AUTO) 0.7 X10'3 (0-0.9); EOSINOPHILS % (AUTO) 5.3 % (0-6); HEMATOCRIT 40.5 % (35.0-45.0); HEMOGLOBIN 13.5 g/dl (12.0-16.0); LYMPHOCYTES # (AUTO) 2.8 X10'3 (1.1-4.8); LYMPHOCYTES % (AUTO) 21.6 % (21-51); MEAN CORPUSCULAR HGB CONC 33.3 g/dL (33.0-36.5); MEAN CORPUSCULAR VOLUME 93.1 FL (78-98); MEAN PLATELET VOLUME 8.7 FL (7.4-10.4); MONOCYTES # (AUTO) 0.9 X10'3 (0-0.9); MONOCYTES % (AUTO) 6.6 % (2-12); NEUTROPHILS # (AUTO) 8.7 X10'3 (1.8-7.7); PLATELET COUNT 241 X10'3 (140-440); RED BLOOD COUNT 4.35 X10'6 (4.20-5.60); RED CELL DISTRIBUTION WIDTH 13.1 % (11.5-14.5); WHITE BLOOD COUNT 13.1 X10'3 (4.5-11.0)
[2023-12-27 09:52] LABS: CALCIUM 8.9 MG/DL (8.5-10.1); FREE T4 (FREE THYROXINE) 0.91 NG/DL (0.73-1.40); PHOSPHORUS 1.8 MG/DL (2.3-4.5); THYROID STIMULATING HORMONE 0.99 ulU/ml (0.34-4.50)
[2023-12-28 08:28] LABS: COMPLEMENT C3, SERUM 144 mg/dL (82-167); THYROID PEROXIDASE AB <9 IU/mL (0-34)
== END 2023-12-27 23:59 | disposition home or self-care (01) ==
LOC: RAD 08:23
PROVIDERS: ATTEND Physician Assistant
DX: E21.5 Disorder of parathyroid gland, unspecified (principal); R79.89 Other specified abnormal findings of blood chemistry; D72.10 Eosinophilia, unspecified
CPT/HCPCS: 36415; 76536; 82310; 82330; 84100; 84439; 84443; 85025; 86147; 86160; 86376

== ENCOUNTER 2024-01-17 08:31 | Outpatient (CLI) | payer OTHER | END 2024-01-17 23:59 | disposition home or self-care (01) | LOC: RAD 08:31 | PROVIDERS: ATTEND Student in an Organized Health Care Education/Training Program | DX: M54.50 Low back pain, unspecified (principal) | CPT/HCPCS: 72100; 72200 ==

== ENCOUNTER 2024-06-05 12:34 | Outpatient (CLI) | payer OTHER ==
[2024-06-05 13:11] LABS: ALBUMIN 4.2 G/DL (3.4-5.0); ANION GAP 6 (8-16); BLOOD UREA NITROGEN 15 MG/DL (7-18); BUN/CREATININE RATIO 15.5 (10.0-20.0); CHLORIDE 104 MMOL/L (99-107); CREATININE 0.97 MG/DL (0.40-0.90); GLUCOSE 110 MG/DL (70-104); POTASSIUM 3.8 MMOL/L (3.5-5.1); SODIUM 139 MMOL/L (135-145); TOTAL CARBON DIOXIDE 28.9 MMOL/L (24-32); eGFR 62 ML/MIN
== END 2024-06-05 23:59 | disposition home or self-care (01) ==
LOC: RAD 12:34
PROVIDERS: ATTEND Urology
DX: Z01.818 Encounter for other preprocedural examination (principal); Q62.31 Congenital ureterocele, orthotopic; N28.1 Cyst of kidney, acquired; N28.81 Hypertrophy of kidney
CPT/HCPCS: 36415; 76770; 80048

== ENCOUNTER 2024-09-18 12:53 | Outpatient (CLI) | payer OTHER ==
[2024-09-18 13:38] LABS: BASOPHILS % (AUTO) 0.4 % (0-1); EOSINOPHILS # (AUTO) 0.1 X10'3 (0-0.9); EOSINOPHILS % (AUTO) 0.9 % (0-6); HEMATOCRIT 39.7 % (35.0-45.0); HEMOGLOBIN 13.3 g/dl (12.0-16.0); LYMPHOCYTES # (AUTO) 2.8 X10'3 (1.1-4.8); LYMPHOCYTES % (AUTO) 21.7 % (21-51); MEAN CORPUSCULAR HEMOGLOBIN 31.2 PG (27.0-31.0); MEAN CORPUSCULAR HGB CONC 33.6 g/dL (33.0-36.5); MEAN CORPUSCULAR VOLUME 92.9 FL (78-98); MEAN PLATELET VOLUME 9.7 FL (7.4-10.4); MONOCYTES # (AUTO) 0.9 X10'3 (0-0.9); MONOCYTES % (AUTO) 6.8 % (2-12); NEUTROPHILS # (AUTO) 8.9 X10'3 (1.8-7.7); NEUTROPHILS % (AUTO) 70.2 % (42-75); PLATELET COUNT 224 X10'3 (140-440); RED BLOOD COUNT 4.28 X10'6 (4.20-5.60); RED CELL DISTRIBUTION WIDTH 13.8 % (11.5-14.5); WHITE BLOOD COUNT 12.7 X10'3 (4.5-11.0)
[2024-09-18 13:45] LABS: ALANINE AMINOTRANSFERASE 49 U/L (12-78); ALBUMIN/GLOBULIN RATIO 1.4 (1.1-1.5); ALKALINE PHOSPHATASE 50 IU/L (46-116); ANION GAP 8 (8-16); ASPARTATE AMINO TRANSFERASE 17 U/L (10-37); BILIRUBIN,TOTAL 0.3 MG/DL (0.1-1.0); BLOOD UREA NITROGEN 17 MG/DL (7-18); CHLORIDE 105 MMOL/L (99-107); CHOL/HDL RATIO 3.1 (0.00-4.99); CHOLESTEROL 160 MG/DL (0-200); CREATININE 1.13 MG/DL (0.40-0.90); GLUCOSE 104 MG/DL (70-104); HDL CHOLESTEROL 51 MG/DL (35-60); LDL CHOLESTEROL 74 MG/DL (50-100); POTASSIUM 4.3 MMOL/L (3.5-5.1); SODIUM 140 MMOL/L (135-145); TOTAL CARBON DIOXIDE 27.1 MMOL/L (24-32); TOTAL PROTEIN 6.8 G/DL (6.4-8.2); TRIGLYCERIDES 270 MG/DL (20-135); eGFR 52 ML/MIN
[2024-09-20 07:10] LABS: PROGESTERONE 0.3 ng/mL (.); TESTOSTERONE, SERUM 29 ng/dL (4-50)
== END 2024-09-18 23:59 | disposition home or self-care (01) ==
LOC: LAB 12:53
PROVIDERS: ATTEND Physician Assistant
DX: E87.1 Hypo-osmolality and hyponatremia (principal); Q61.5 Medullary cystic kidney; N95.1 Menopausal and female climacteric states; M32.9 Systemic lupus erythematosus, unspecified; E78.1 Pure hyperglyceridemia
CPT/HCPCS: 36415; 80053; 80061; 82670; 84144; 84402; 84403; 85025

== ENCOUNTER 2024-10-01 11:23 | Emergency (ER) | payer OTHER ==
[~2024-10-01] VITALS: Ht 170.2 cm; Wt 106.0 kg
[2024-10-01 11:25] VITALS: TEMP 97.7
--- NOTE | 2024-10-01 11:31 | Physician Documentation ---
History of Present Illness ~ Chief Complaint: Blood in Urine Stated Complaint: KIDNEY PAIN Time Seen by MD: 11:30 Primary Medical Doctor: DR. SR HPI 44-year-old female, history of multiple kidney stones, who presents with right flank pain and hematuria She tells me that she developed right flank pain yesterday, that radiates down to the right lateral abdomen. She also had some steffen hematuria yesterday, which seems to have resolved. She continues to have right-sided pain as well as nausea. He has been drinking a lot of fluids and took anti-inflammatories with only partial relief. She does not have nausea medicine. No fevers, chills, vomiting, dysuria, or other associated symptoms. She has had kidney stones in the past requiring intervention including ureteral stents, the last time was about 4 or 5 years ago. No other acute concerns. Medication Reconciliation Allergies: Coded Allergies: diphenhydramine (Unverified Adverse Reaction, Mild, 02/26/23) Pt states feels like "bugs are crawling on me" and it makes me want to "clean my house" Scheduled Desvenlafaxine Succinate (Desvenlafaxine Succinate ER), 1 TAB PO DAILY, (Reported) Fenofibrate (Fenofibrate), 1 CAP PO DAILY, (Reported) Losartan/Hydrochlorothiazide (Losartan-Hctz 100-12.5 Mg Tab), 1 TAB PO DAILY, (Reported) Montelukast Sodium (Montelukast Sodium), 1 TAB PO DAILY, (Reported) Multivitamin (Multi Vitamin Daily), 1 TAB PO DAILY, (Reported) Rosuvastatin Calcium (Rosuvastatin Calcium), 1 TAB PO HS, (Reported) Scheduled PRN ONDANSETRON ODT 4mg tablet (Ondansetron Odt), 1 TAB PO Q6H PRN PRN for nausea/vomiting Miscellaneous Medications [Albuterol Pa Inh], 200 INH, (Reported) [Pro Prebiotics], (Reported) [Tumeric], (Reported) Past Medical History Past Medical History: High Cholesterol, Hypertension Past Surgical History: cholecystectomy, orthopedic surgeries, tubal ligation Other Past Surgical History: uterine ablation Review of Systems Constitutional: Denies: chills, fever Gastrointestinal: Reports: abdominal pain, nausea; Denies: vomiting Genitourinary: Reports: flank pain Physical Exam Vital Signs: Temperature: 97.7, Source: Oral, Heart Rate: 94, Respiratory Rate: 16, BP: 159/85, Pulse Oximetry: 99, Weight: 106.000 Oxygen Flow Rate: 0 Physical Exam General: This is an uncomfortable but very pleasant-appearing young woman HEENT: Atraumatic, oropharynx is moist Heart: Mild tachycardic, appears regular Lungs: normal work of breathing, normal oxygen saturation on room air Abdomen: Soft, nondistended, tender to palpation in the right lateral abdomen only, no suprapubic tenderness, no left-sided tenderness, no rebound or guarding Back: No tenderness on palpation of the muscles of the back. She does have right CVA tenderness to percussion Neuro: Alert and oriented Psychiatric: Calm and cooperative with exam Progress Results/Orders Results/Orders Orders - HARPAL WHITE MD General Nursing Order (10/01/24 ) Ultrasound Kidney Non Vasc (10/01/24 11:40) Completed Orders - HARPAL WHITE MD Hcg, Ur Ql (10/01/24 11:29) Ondansetron Disint. Tablet (Zofran Odt T (10/01/24 11:40) Ultrasound Kidney Non Vasc (10/01/24 11:40) Ua W/Microscopic, Cult If Ind (10/01/24 11:30) Medications Received in ER Medications (Trade) Dose Ordered Sig/Negar Route PRN Reason Start Time Stop Time Status Last Admin Dose Admin (Zofran ODT tablet) 4 mg ONCE ONCE PO 10/01/24 11:40 10/01/24 11:41 DC 10/01/24 12:00 4 MG Vital Signs 10/01/24 10/01/24 11:25 12:42 Temp 97.7 Pulse 94 80 Resp 16 16 B/P (MAP) 159/85 125/75 (92) Pulse Ox 99 95 O2 Flow Rate 0 0 Laboratory Tests Test 10/01/24 11:30 Urine Specimen Description Cln catch midstream Urine Color Yellow Urine Clarity Slightly cloudy Urine pH 6.0 Urine Specific [place] 1.010 Urine Protein Negative Urine Glucose (UA) Negative Urine Ketones Negative Urine Occult Blood Negative Urine Nitrite Negative Urine Bilirubin Negative Urine Urobilinogen 0.2 Urine Leukocyte Esterase Negative Urine RBC 3-10 Urine WBC 0-4 Urine Squamous Epithelial Cells Moderate Urine Transitional Epithelial Cells Few Urine Renal Cells Few Urine Amorphous Urates 1+ Urine Bacteria Few Urine Mucus Few Urine Culture Indicated Not ind Volume Urine Centrifuged 10 ml Urine HCG, Qualitative Negative Urine Comment EKG/XRAY/CT/US/VASC/MRI Ultrasound : Impression Renal ultrasound shows no hydronephrosis, visible stone, or other abnormality Medical Decision Making Additional Comment Differential includes ureteral stone, hydronephrosis, UTI, pyelonephritis, gallbladder disease, appendicitis Assessment The patient presents with right flank pain and hematuria. Per her history and exam, this seems most consistent with a kidney stone, less likely kidney infection. She has had multiple kidney stones in the past. After shared decision-making conversation we decided on the following plan: We will proceed with oral Zofran, oral fluids, and a kidney ultrasound, to try to avoid radiation. We will obtain a urinalysis to rule out infection. Urinalysis with no UTI. Ultrasound unremarkable, no significant hydronephrosis. The patient felt better after Zofran and requested to be discharged. She will be discharged with a prescription for Zofran, symptomatic treatment, and return precautions if she does develop worsening symptoms Departure Time of Disposition: 12:38 Disposition: 01 HOME / SELF CARE / HOMELESS Impression: Primary Impression: Kidney stones Condition: Stable Discharge Instructions: Kidney Stones Referrals: NO PRIMARY CARE PROVIDER (PCP) Prescriptions ONDANSETRON ODT 4mg tablet (ONDANSETRON ODT) 4 Mg Tab.rapdis 1 TAB PO Q6H PRN PRN for nausea/vomiting for 4 Days, #16 TAB 1 Refill Prov: HARPAL WHITE MD 10/01/24 Education Educated: Patient Educated regarding: diagnosis, treatment, need for follow up Signature Scribe Signature: marj Attestation: HARPAL Vega MD Oct 01, 2024 11:31
[2024-10-01 11:41] LABS: URINE HCG NEGATIVE (NEG)
[2024-10-01 11:42] LABS: BILIRUBIN,URINE NEGATIVE (Neg); CLARITY,URINE SLIGHTLY CLOUDY (Clear); COLOR,URINE YELLOW (Yellow); GLUCOSE, URINE NEGATIVE (Neg); KETONES,URINE NEGATIVE (Neg); LEUKOCYTE ESTERASE ,URINE NEGATIVE (Neg); NITRITES, URINE NEGATIVE (Neg); OCCULT BLOOD,URINE NEGATIVE (Neg); PROTEIN,URINE NEGATIVE (Neg); UROBILINOGEN,URINE 0.2 E.U/dL (0.2-1.0)
[2024-10-01 11:59] LABS: UA COLLECTION TYPE CLN CATCH MIDSTREAM
[2024-10-01] MEDS: ondansetron 4mg rapidly disintigrating tab PO ONE (12:00)
[2024-10-01 12:10] LABS: WBC,URINE 0-4 /HPF (0-4)
[2024-10-01 12:11] LABS: AMORPHOUS URATES 1+; BACTERIA,URINE FEW /HPF (Neg); MUCUS STRANDS FEW /LPF (Neg); RENAL CELLS, URINE FEW /HPF; SQUAMOUS EPITHELIAL CELL,UR MODERATE /LPF (FEW); TRANSITIONAL EPI CELLS,URINE FEW /HPF
--- NOTE | 2024-10-01 12:22 | RADIOLOGY REPORT ---
INDICATION: Right flank pain, history of kidney stones, eval stone/hydronephrosis TECHNIQUE: Multiple real-time sonographic images of the kidneys and bladder were obtained. COMPARISON: US ULTRASOUND KIDNEY NON VASC on DOS: 06/05/24, US ULTRASOUND KIDNEY NON VASC on DOS: 02/15, ULTRASOUND KIDNEY NON VASC on DOS: 12/24/19 FINDINGS: RIGHT kidney measures 13.8 cm in length. No hydronephrosis. LEFT kidney measures 11.1 cm in length. No hydronephrosis. No large intraluminal masses are seen in the bladder. IMPRESSION: 1. Unremarkable examination.
[2024-10-01 12:42] VITALS: BP 125/75; PULSE 80; RESP 16; O2SAT 95
[2024-10-01] MEDS ORDERED: ONDA-243 PO (12:42)
== END 2024-10-01 12:49 | disposition home or self-care (01) ==
LOC: ER 11:24
DX: N20.0 Calculus of kidney (principal); I10 Essential (primary) hypertension; E78.00 Pure hypercholesterolemia, unspecified; Z90.49 Acquired absence of other specified parts of digestive tract; Z98.51 Tubal ligation status; Z88.8 Allergy status to other drugs, medicaments and biological substances; Z79.899 Other long term (current) drug therapy; Z98.890 Other specified postprocedural states
CPT/HCPCS: 76770; 81001; 81025; 99284